=== PATIENT | female | born 1950 | race Caucasian/White ===

== ENCOUNTER 2016-08-19 04:55 | Emergency (ER) | payer MEDICARE, OTHER ==
[2016-08-19] MEDS ORDERED: SUMAtriptan Succinate 6 MG/0.5 ML VIAL ONE (05:08)
[2016-08-19] MEDS ORDERED: Ondansetron ODT 4 MG TAB ONE (05:12)
--- NOTE | 2016-08-19 05:47 | ERRECORD ---
[facility] EMERGENCY RECORD HPI HEADACHE (05:07 [facility]) CHIEF COMPLAINT: Patient presents for evaluation of migraine headache. HISTORIAN: History provided by patient, 66F presents to the ED with complaints of migraine headache. States that she has a history of migraines and doesn't have any imitrex left at home. States her symptoms are similar to the migraines she has had in the past. Denies sudden onset or worst headache of life. Denies fever chills or neck stiffness. LOCATION: Symptoms are generalized. QUALITY: Pain is dull in nature, described as aching. TIME COURSE: Gradual onset of symptoms, There has been no change in the patient's symptoms over time. ASSOCIATED WITH FEMALE: Associated with aura. EXACERBATED BY: Patient's condition exacerbated by nothing. RELIEVED BY: Patient's condition relieved by nothing because patient has not tried anything for relief. RISK FACTORS: No subarachnoid hemorrhage risk factors, Subarachnoid hemorrahage risk factor analysis completed. ROS (05:08 [facility]) CONSTITUTIONAL: Negative constitutional review of systems, Historian denies chills, denies fever. EYES: Negative eye review of systems, Historian denies eye pain, denies vision changes. ENT: Negative ears, nose, throat review of systems, Historian denies rhinorrhea, denies sore throat, denies voice changes. CARDIOVASCULAR: Negative cardiovascular review of systems, Historian denies chest pain, denies palpitations. RESPIRATORY: Negative respiratory review of systems, Historian denies cough, denies shortness of breath. GI: Negative gastrointestinal review of systems, Historian denies abdominal pain, denies constipation, denies diarrhea, denies nausea, denies vomiting. GENITOURINARY FEMALE: Negative genitourinary review of systems, Historian denies dysuria, denies frequency. MUSCULOSKELETAL: Negative musculoskeletal review of systems, Historian denies back pain, denies fall, denies injury. SKIN: Negative skin review of systems, Historian denies rash, denies skin changes. NEUROLOGIC: Historian reports headache. HEMO/LYMPHATIC: Normal hematologic/lymphatic system review, Historian denies abnormal blood clotting. ALLERGIC/IMMUNOLOGIC: Normal allergy/immunologic system review, Historian denies frequent infections. PAST MEDICAL HISTORY (:09 WJUL) MEDICAL HISTORY: Flu vaccine up to date, Tetanus immunization up to date, Pneumococcal vaccine not up to date, Past medical history includes neurological disease, migraine headaches amd meniscus tear ten years ago. reviewed 08/19/16. &a-1R&a+25V*p+0X*g8878B*c202B*c15G*c2P*p-0X&a-25V&a+1R Name: Jessica Gutierrez : 1950 F66 MedRec: [id number] AcctNum: [id number] Prepared: Meredith Aug 20, 2016 09:02 by Interface Page 1 of 4 pMD [facility] EMERGENCY RECORD FEMALE SURGICAL HISTORY: adenoidectomy, laproscopy, bilat elbow repair, Surgical history of section, Surgical history of tonsillectomy. reviewed 08/19/16. PSYCHIATRIC HISTORY: Psychiatric history includes, depression. reviewed 08/19/16. SOCIAL HISTORY: Patient drinks socially, Patient denies drug use, Patient has no smoking history. reviewed 08/19/16. KNOWN ALLERGIES ketorolac tromethamine (Unconfirmed) Sulfa (Sulfonamide Antibiotics) tetracycline Tetracyclines (Unconfirmed) Toradol (Unconfirmed): Reaction: Rash Xylocaine (Unconfirmed) CURRENT MEDICATIONS (05:04 WJAN) Zoloft: TABLET : Strength - 100 mg : ORAL Patient Dose: 1 tab(s) Oral once a day. Abilify: TABLET : Strength - 5 mg : ORAL Patient Dose: 1 tab(s) Oral once a day. Imitrex: TABLET : Strength - 100 mg : ORAL Patient Dose: 1 tab(s) Oral As Needed. traMADol: TABLET : Strength - 50 mg : ORAL Patient Dose: 1 tab(s) Oral every 8 hours PRN. VITAL SIGNS (04:58 WJAN) VITAL SIGNS: BP: 170/89, Pulse: 77, Resp: 20 (Non-Labored), Temp: 98.1 (Oral), Pain: 8, O2 sat: 98 on Room Air, Time: 08/19/2016 04:58. PHYSICAL EXAM (05:08 [facility]) CONSTITUTIONAL: Patient afebrile, Pulse normal, Blood pressure, hypertensive, Respiratory rate normal, Patient appears non toxic. HEAD: Head exam normal, Head exam included findings of head atraumatic, normocephalic. EYES: Eye exam normal, Eye exam included findings of eyelids normal to inspection, Pupils equally round and reactive to light, Extraocular muscles intact, no nystagmus. ENT: ENT exam normal, Ear exam normal, external ear normal, tympanic membranes normal, no bleeding, Pharynx exam normal, Uvula exam normal, Tonsil exam normal, Mouth exam normal, mucous membranes moist, teeth normal. NECK: Neck exam normal, Neck exam included findings of normal range of motion, Trachea midline, no meningeal signs, no cervical adenopathy, no tenderness. &a-1R&a+25V*p+0X*k6746X*c202B*c15G*c2P*p-0X&a-25V&a+1R Name: Jessica Gutierrez : 1950 F66 MedRec: [id number] AcctNum: [id number] Prepared: Meredith Aug 20, 2016 09:02 by Interface Page 2 of 4 D [facility] EMERGENCY RECORD RESPIRATORY CHEST: Respiratory and chest exam normal, Respiratory exam included findings of no respiratory distress, Breath sounds clear. CARDIOVASCULAR: Cardiovascular assessment normal, Cardiovascular exam included findings of heart rate regular rate and rhythm, Heart sounds normal. ABDOMEN FEMALE: Abdominal exam included findings of abdomen nontender, Bowel sounds normal, no distension, no mass, no pulsatile masses, no peritoneal signs, no rigidity, no guarding, no rebound, Rovsing's sign absent. BACK: Back exam normal, Back exam included findings of normal inspection, range of motion normal, no tenderness. UPPER EXTREMITY: Upper extremity exam normal, Upper extremity exam included findings of inspection normal, Range of motion normal, Motor strength normal, Sensation intact, Radial pulse normal. LOWER EXTREMITY: Lower extremity exam normal, Lower extremity exam included findings of inspection normal, Range of motion normal, Motor strength normal, Sensation intact, Posterior tibial pulse normal, Pedal pulse normal. NEURO: Neuro exam normal, Neuro exam findings include patient oriented to person, place and time, Speech normal, Gait normal, Cranial nerves intact, no focal motor deficits, no focal sensory deficits. SKIN: Skin exam normal, Skin exam included findings of skin warm, dry, and normal in color, no rash. PSYCHIATRIC: Psychiatric exam normal, Normal affect. MEDICATION ADMINISTRATION SUMMARY Drug Name: Imitrex oral, Dose Ordered: 25 mg, Route: Oral, Status: Canceled, Time: 05:43 08/19/2016, Drug Name: Imitrex subcutaneous, Dose Ordered: 6 mg, Route: Subcutaneous, Status: Given, Time: 05:11 08/19/2016, Detailed record available in Medication Service section. DOCTOR NOTES (05:41 [facility]) TEXT: Patient presented with findings consistent with migraine headache. No concern for SAH or other intracranial process. Symptoms improved, appropriate for discharge home and outpatient follow up. PATIENT STATUS: Patient has improved since arrival to emergency department. PATIENT PLAN: The patient will be discharged, The patient will follow up with primary care physician. PROBLEM LIST No recorded problems DIAGNOSIS (05:39 [facility]) FINAL: PRIMARY: Migraine (unspecified). &a-1R&a+25V*p+0X*x4641X*c202B*c15G*c2P*p-0X&a-25V&a+1R Name: Jessica Gutierrez : 1950 F66 MedRec: [id number] AcctNum: [id number] Prepared: Meredith Aug 20, 2016 09:02 by Interface Page 3 of 4 pMD [facility] EMERGENCY RECORD PRESCRIPTION No recorded prescriptions DISPOSITION PATIENT: Disposition Type: Discharge, Disposition: *Discharge Home. (05:39 [facility]) Condition: Good, Patient left the department. (05:47 [facility]) Campbell: JOHN=MD Bebe, Franklin YODER=CLARENCE Delvalle, Cece &a-1R&a+25V*p+0X*j8601P*c202B*c15G*c2P*p-0X&a-25V&a+1R Name: Jessica Gutierrez : 1950 F66 MedRec: [id number] AcctNum: [id number] Prepared: Meredith Aug 20, 2016 09:02 by Interface Page 4 of 4 pMD MTDD
--- NOTE | 2016-08-19 05:52 | PICIS ---
[facility] EMERGENCY RECORD TRIAGE ([facility] Aug 19, 2016 05:03 WJAN) TRIAGE NOTES: Ran out of medication, migraine for 4 hours, vomiting x 3. (SunAug 19, 2016 05:03 WJAN) PATIENT: NAME: Jessica Gutierrez, AGE: 66, GENDER: female, : Sun1950, TIME OF GREET: SunAug 19, 2016 04:56, PREFERRED LANGUAGE: Vietnamese, ETHNICITY: Not or , ECODE BILLING MAP: [facility], SSN: [id number], Zip Code: [address], KG WEIGHT: 85.28, PHONE: CELL, , , PERSON ID: [id number], PCP: ALEX Ward Kimberly. (SunAug 19, 2016 05:03 WJAN) COMPLAINT: Migraine. (SunAug 19, 2016 05:03 WJAN) ADMISSION: URGENCY: 4 Non Urgent, ADMISSION SOURCE: Home, TRANSPORT: Walk-in, BED: TRIAGE. (SunAug 19, 2016 05:03 WJAN) ASSESSMENT: Additional Triage notes: Pt reports migraine PINZON, ran out of medication. Pt A&Ox4, NAD, breathing non-labored. (05:09 [facility]) IMMUNIZATIONS: Flu vaccine up to date, Tetanus immunization up to date, Pneumococcal vaccine not up to date. (05:09 [facility]) SIRS SCORING: Heart Rate 55-109 (0), Temp range 96.8-101.1 (0), respiratory rate 12-24 (0), Mental Status altered: no (0), Infection or Suspected Infection: No. (05:09 [facility]JAN) TRIAGE SCREENING: Patient denies suicidal ideation, Patient denies presence of domestic violence. (05:09 [facility]JAN) LMP: LMP: Menopause. (05:09 [facility]AN) PROVIDERS: TRIAGE NURSE: Cece Delvalle RN. (SunAug 19, 2016 05:03 WJAN) VITAL SIGNS: BP 170/89, Pulse 77, Resp 20, (Non-Labored), Temp 98.1, (Oral), Pain 8, O2 Sat 98, on Room Air, Time 08/19/2016 04:58. (04:58 WJAN) PREVIOUS VISIT ALLERGIES: Sulfa (Sulfonamide Antibiotics), tetracycline, Toradol, Xylocaine. (Sat Aug 19, 2016 05:03 WJAN) Sulfa (Sulfonamide Antibiotics), tetracycline, Toradol, Xylocaine. (05:09 [facility]JAN) KNOWN ALLERGIES ketorolac tromethamine (Unconfirmed) Sulfa (Sulfonamide Antibiotics) tetracycline Tetracyclines (Unconfirmed) Toradol (Unconfirmed): Reaction: Rash Xylocaine (Unconfirmed) CURRENT MEDICATIONS (05:04 [facility]) Zoloft: TABLET : Strength - 100 mg : ORAL Patient Dose: 1 tab(s) Oral once a day. Abilify: TABLET : Strength - 5 mg : ORAL Patient Dose: 1 tab(s) Oral once a day. Imitrex: &a-1R&a+25V*p+0X*b3323T*c202B*c15G*c2P*p-0X&a-25V&a+1R Name: Jessica Gutierrez : 1950 F66 MedRec: [id number] AcctNum: [id number] Prepared: Meredith Aug 20, 2016 09:09 by Interface Page 1 of 6 pMD [facility] EMERGENCY RECORD TABLET : Strength - 100 mg : ORAL Patient Dose: 1 tab(s) Oral As Needed. traMADol: TABLET : Strength - 50 mg : ORAL Patient Dose: 1 tab(s) Oral every 8 hours PRN. VITAL SIGNS (04:58 WJAN) VITAL SIGNS: BP: 170/89, Pulse: 77, Resp: 20 (Non-Labored), Temp: 98.1 (Oral), Pain: 8, O2 sat: 98 on Room Air, Time: 08/19/2016 04:58. NURSING ASSESSMENT: HEADACHE (05:09 WJAN) CONSTITUTIONAL: Patient arrives ambulatory, Gait steady, History obtained from patient, Patient appears, uncomfortable, Patient cooperative, Patient alert, Oriented to person, place and time, Skin warm, Skin dry, Skin normal in color, Mucous membranes pink, Mucous membranes moist, Patient is well-groomed, Patient complains of Migraine, Pt reports running out of medication and has had a migraine for 4 hours, vomiting x 3. Pt A&Ox4, NAD, breathing non-labored. PAIN: on a scale 0-10 patient rates pain as 8. HEADACHE: history of migraines, Pain is typical for migraines, Associated with vomiting, Notes: Ran out of medication. NEURO: Able to close eyes, Face symmetrical, Speech normal, no facial droop, no facial numbness, no swelling, no paresthesias, GCS:, Eye opening: (4) - Spontaneous, Verbal: (5) - Oriented/conversive, Motor: (6) - Obeys commands/Spontaneous, Associated with vomiting, history, Number of times: 3. SAFETY: Side rails up, Cart/Stretcher in lowest position, Call light within reach, Hospital ID band on. NURSING PROCEDURE: DISCHARGE NOTE (05:46 WJAN) DISCHARGE: Patient discharged to home, ambulating without assistance, family driving, accompanied by //partner, Summary of Care printed/ provided, Patient requested and was provided an electronic copy of Discharge Instructions, Transition record given to patient, Discharge instructions given to patient, Simple or moderate discharge teaching performed, by CLARENCE Zhao, Notes: Patient instructed to follow up with PCP. Patient instructed to follow medication instructions. Patient instructed to follow discharge teaching. BELONGINGS: Belongings remain with patient, Valuables remain with patient. SAFETY: Side rails up, Cart/Stretcher in lowest position, Call light within reach, Hospital ID band on. MEDICATION ADMINISTRATION SUMMARY Drug Name: Imitrex oral, Dose Ordered: 25 mg, Route: Oral, Status: Canceled, Time: 05:43 08/19/2016, &a-1R&a+25V*p+0X*l3356A*c202B*c15G*c2P*p-0X&a-25V&a+1R Name: Jessica Gutierrez : 1950 F66 MedRec: [id number] AcctNum: [id number] Prepared: Meredith Aug 20, 2016 09:09 by Interface Page 2 of 6 pMD [facility] EMERGENCY RECORD Drug Name: Imitrex subcutaneous, Dose Ordered: 6 mg, Route: Subcutaneous, Status: Given, Time: 05:11 08/19/2016, Detailed record available in Medication Service section. MEDICATION SERVICE Imitrex oral: Order: Imitrex oral (sumatriptan succinate) - Dose: 25 mg : Oral POTENTIAL SEVERE INTERACTION: traMADol - Patient tolerated similar in past Ordered by: Franklin Spence MD Entered by: Franklin Spence MD Sat Aug 19, 2016 05:41 . (CANCELED) Imitrex oral: Originally ordered Sat Aug 19, 2016 05:41 Cancel reason: Change in medication plan. (05:43 [facility]) Imitrex subcutaneous: Order: Imitrex subcutaneous (sumatriptan succinate) - Dose: 6 mg : Subcutaneous POTENTIAL SEVERE INTERACTION: traMADol - Patient tolerated similar in past, Reviewed with patient Ordered by: Franklin Spence MD Entered by: Franklin Spence MD Sat Aug 19, 2016 05:07 Documented as given by: Maira Conway RN Sat Aug 19, 2016 05:11 Patient, Medication, Dose, Route and Time verified prior to administration. Amount given: 6MG, Medication administered to left upper arm, Correct patient, time, route, dose and medication confirmed prior to administration, Patient advised of actions and side-effects prior to administration, Allergies confirmed and medications reviewed prior to administration, Advised not to ambulate without assistance, Patient in position of comfort, Side rails up, Cart in lowest position, Family at bedside. HPI HEADACHE (05:07 [facility]) CHIEF COMPLAINT: Patient presents for evaluation of migraine headache. HISTORIAN: History provided by patient, 66F presents to the ED with complaints of migraine headache. States that she has a history of migraines and doesn't have any imitrex left at home. States her symptoms are similar to the migraines she has had in the past. Denies sudden onset or worst headache of life. Denies fever chills or neck stiffness. LOCATION: Symptoms are generalized. QUALITY: Pain is dull in nature, described as aching. TIME COURSE: Gradual onset of symptoms, There has been no change in the patient's symptoms over time. ASSOCIATED WITH FEMALE: Associated with aura. EXACERBATED BY: Patient's condition exacerbated by nothing. RELIEVED BY: Patient's condition relieved by nothing because patient has not tried anything for relief. RISK FACTORS: No subarachnoid hemorrhage risk factors, Subarachnoid hemorrahage risk factor analysis completed. &a-1R&a+25V*p+0X*p4488Q*c202B*c15G*c2P*p-0X&a-25V&a+1R Name: Jessica Gutierrez : 1950 F66 MedRec: [id number] AcctNum: [id number] Prepared: Meredith Aug 20, 2016 09:09 by Interface Page 3 of 6 pMD [facility] EMERGENCY RECORD ROS (05:08 [facility]) CONSTITUTIONAL: Negative constitutional review of systems, Historian denies chills, denies fever. EYES: Negative eye review of systems, Historian denies eye pain, denies vision changes. ENT: Negative ears, nose, throat review of systems, Historian denies rhinorrhea, denies sore throat, denies voice changes. CARDIOVASCULAR: Negative cardiovascular review of systems, Historian denies chest pain, denies palpitations. RESPIRATORY: Negative respiratory review of systems, Historian denies cough, denies shortness of breath. GI: Negative gastrointestinal review of systems, Historian denies abdominal pain, denies constipation, denies diarrhea, denies nausea, denies vomiting. GENITOURINARY FEMALE: Negative genitourinary review of systems, Historian denies dysuria, denies frequency. MUSCULOSKELETAL: Negative musculoskeletal review of systems, Historian denies back pain, denies fall, denies injury. SKIN: Negative skin review of systems, Historian denies rash, denies skin changes. NEUROLOGIC: Historian reports headache. HEMO/LYMPHATIC: Normal hematologic/lymphatic system review, Historian denies abnormal blood clotting. ALLERGIC/IMMUNOLOGIC: Normal allergy/immunologic system review, Historian denies frequent infections. PAST MEDICAL HISTORY (05:09 [facility]) MEDICAL HISTORY: Flu vaccine up to date, Tetanus immunization up to date, Pneumococcal vaccine not up to date, Past medical history includes neurological disease, migraine headaches amd meniscus tear ten years ago. reviewed 08/19/16. FEMALE SURGICAL HISTORY: adenoidectomy, laproscopy, bilat elbow repair, Surgical history of section, Surgical history of tonsillectomy. reviewed 08/19/16. PSYCHIATRIC HISTORY: Psychiatric history includes, depression. reviewed 08/19/16. SOCIAL HISTORY: Patient drinks socially, Patient denies drug use, Patient has no smoking history. reviewed 08/19/16. PHYSICAL EXAM (05:08 [facility]) CONSTITUTIONAL: Patient afebrile, Pulse normal, Blood pressure, hypertensive, Respiratory rate normal, Patient appears non toxic. HEAD: Head exam normal, Head exam included findings of head atraumatic, normocephalic. EYES: Eye exam normal, Eye exam included findings of eyelids normal to inspection, Pupils equally round and reactive to light, Extraocular muscles intact, no nystagmus. ENT: ENT exam normal, Ear exam normal, external ear normal, &a-1R&a+25V*p+0X*d2791X*c202B*c15G*c2P*p-0X&a-25V&a+1R Name: Jessica Gutierrez : 1950 F66 MedRec: [id number] AcctNum: [id number] Prepared: Meredith Aug 20, 2016 09:09 by Interface Page 4 of 6 pMD [facility] EMERGENCY RECORD tympanic membranes normal, no bleeding, Pharynx exam normal, Uvula exam normal, Tonsil exam normal, Mouth exam normal, mucous membranes moist, teeth normal. NECK: Neck exam normal, Neck exam included findings of normal range of motion, Trachea midline, no meningeal signs, no cervical adenopathy, no tenderness. RESPIRATORY CHEST: Respiratory and chest exam normal, Respiratory exam included findings of no respiratory distress, Breath sounds clear. CARDIOVASCULAR: Cardiovascular assessment normal, Cardiovascular exam included findings of heart rate regular rate and rhythm, Heart sounds normal. ABDOMEN FEMALE: Abdominal exam included findings of abdomen nontender, Bowel sounds normal, no distension, no mass, no pulsatile masses, no peritoneal signs, no rigidity, no guarding, no rebound, Rovsing's sign absent. BACK: Back exam normal, Back exam included findings of normal inspection, range of motion normal, no tenderness. UPPER EXTREMITY: Upper extremity exam normal, Upper extremity exam included findings of inspection normal, Range of motion normal, Motor strength normal, Sensation intact, Radial pulse normal. LOWER EXTREMITY: Lower extremity exam normal, Lower extremity exam included findings of inspection normal, Range of motion normal, Motor strength normal, Sensation intact, Posterior tibial pulse normal, Pedal pulse normal. NEURO: Neuro exam normal, Neuro exam findings include patient oriented to person, place and time, Speech normal, Gait normal, Cranial nerves intact, no focal motor deficits, no focal sensory deficits. SKIN: Skin exam normal, Skin exam included findings of skin warm, dry, and normal in color, no rash. PSYCHIATRIC: Psychiatric exam normal, Normal affect. EVENTS TRANSFER: Triage to Emergency Triage. ([facility] Aug 19, 2016 05:03 WJUL) Emergency Triage to Emergency Room -02. (05:04 WJUL) Removed from Emergency Emergency Room -02. (05:47 WJUL) DOCTOR NOTES (05:41 [facility]) TEXT: Patient presented with findings consistent with migraine headache. No concern for SAH or other intracranial process. Symptoms improved, appropriate for discharge home and outpatient follow up. PATIENT STATUS: Patient has improved since arrival to emergency department. PATIENT PLAN: The patient will be discharged, The patient will follow up with primary care physician. PROBLEM LIST &a-1R&a+25V*p+0X*w8301O*c202B*c15G*c2P*p-0X&a-25V&a+1R Name: Jessica Gutierrez : 1950 F66 MedRec: [id number] AcctNum: [id number] Prepared: Meredith Aug 20, 2016 09:09 by Interface Page 5 of 6 pMD [facility] EMERGENCY RECORD No recorded problems DIAGNOSIS (05:39 [facility]) FINAL: PRIMARY: Migraine (unspecified). DISPOSITION PATIENT: Disposition Type: Discharge, Disposition: *Discharge Home. (05:39 [facility]) Condition: Good, Patient left the department. (05:47 WJUL) INSTRUCTION (05:40 JJ[facility]) DISCHARGE: MIGRAINE HEADACHE. FOLLOWUP: ALEX Ward, Krista, [facility], [address] [place] [address], . SPECIAL: refill prescription. Return to the ED if your headache changes or returns. PRESCRIPTION No recorded prescriptions IMAGING *DISCHARGE INSTRUCTIONS RECEIPT: Image captured from scanner. (05:47 WJUL) *SUPPLY CHARGE SHEET: Image captured from scanner. (05:48 WJUL) ADMIN DIGITAL SIGNATURE: MD Spence Jason. (05:42 [facility]) MD Spence Jason. ([place] Aug 20, 2016 09:00 [facility]) Campbell: JOHN=MD Spence Jason WJAN=CLARENCE Delvalle, Cece &a-1R&a+25V*p+0X*u4811O*c202B*c15G*c2P*p-0X&a-25V&a+1R Name: Jessica Gutierrez : 1950 F66 MedRec: [id number] AcctNum: [id number] Prepared: Meredith Aug 20, 2016 09:09 by Interface Page 6 of 6 pMD MTDD
== END 2016-08-19 05:46 | disposition home or self-care (01) ==
LOC: BURERS 04:55
DX: G43.909 Migraine, unspecified, not intractable, without status migrainosus (principal); F32.9 Major depressive disorder, single episode, unspecified; Z79.899 Other long term (current) drug therapy
CPT/HCPCS: 96372; J3030; Q0162

== ENCOUNTER 2016-10-07 15:13 | Emergency (ER) | payer MEDICARE, OTHER ==
[2016-10-07 15:41] LABS: Bilirubin Negative (Negative); Blood, Urine Moderate (Negative); Clarity Cloudy (Clear); Glucose, Urine (Dipstick) Negative (Negative); Leukocyte Moderate (Negative); Nitrite Negative (Negative); Protein, Urine (Dipstick) 100 mg/dL (Neg-Trace); Specific Gravity, Urine 1.021 (1.002-1.036); Urobilinogen 0.2 mg/dL (0.2-1.0)
[2016-10-07 15:43] LABS: Bacteria/HPF None Seen HPF (None Seen); RBC/HPF GREATER THAN 50-TNTC HPF (0-3); Squamous Epithelial 0-3 HPF (0-3)
[2016-10-07] MEDS ORDERED: Ciprofloxacin 500 MG TAB ONE (16:15)
== END 2016-10-07 16:20 | disposition home or self-care (01) ==
LOC: BURERS 15:13
DX: N39.0 Urinary tract infection, site not specified (principal); G43.909 Migraine, unspecified, not intractable, without status migrainosus; F32.9 Major depressive disorder, single episode, unspecified
CPT/HCPCS: 81003; 81015; 87077; 87086; 87186; 99283

== ENCOUNTER 2019-08-12 06:34 | Emergency (ER) | payer MEDICARE ==
[2019-08-12] MEDS ORDERED: Adacel (T-DAP) 0.5 ML SYRINGE ONE (06:53)
--- NOTE | 2019-08-12 16:46 | RAD ---
RIGHT KNEE THREE VIEWS: 08/12/19 No fracture, dislocation or joint effusion was seen. The joint space appears normal. IMPRESSION: No acute finding. POS: HOME
== END 2019-08-12 07:32 | disposition home or self-care (01) ==
LOC: BURERS 06:34
DX: S83.91XA Sprain of unspecified site of right knee, initial encounter (principal); M19.90 Unspecified osteoarthritis, unspecified site; G43.909 Migraine, unspecified, not intractable, without status migrainosus; F32.9 Major depressive disorder, single episode, unspecified; Z79.899 Other long term (current) drug therapy; W10.9XXA Fall (on) (from) unspecified stairs and steps, initial encounter
CPT/HCPCS: 90471; 90715